=== PATIENT | female | born 1980 | race African-American/Black ===

== ENCOUNTER 2018-08-01 23:08 | Emergency (ER) | payer SELFPAY ==
[~2018-08-01] VITALS: Ht 157.5 cm; Wt 156.9 kg
[2018-08-01 23:08] VITALS: BP 169/93
[2018-08-02] MEDS ORDERED: LORazepam 1 MG TAB PO ONE (00:20)
[2018-08-02 00:45] VITALS: BP 148/91
== END 2018-08-02 00:45 | disposition home or self-care (01) ==
LOC: MED 23:08
DX: F41.9 Anxiety disorder, unspecified (principal)
CPT/HCPCS: 99284

== ENCOUNTER 2018-08-03 23:36 | Emergency (ER) | payer SELFPAY ==
[~2018-08-03] VITALS: Ht 177.8 cm; Wt 113.4 kg
[2018-08-03 23:38] VITALS: BP 148/82
[2018-08-04] MEDS ORDERED: HALOPERIDOL IM 5 MG/ML VIAL IM ONE (01:10)
[2018-08-04 01:49] VITALS: BP 148/82
== END 2018-08-04 01:49 | disposition home or self-care (01) ==
LOC: MED 23:36
DX: F41.9 Anxiety disorder, unspecified (principal); F22 Delusional disorders
CPT/HCPCS: 99284; J1630